=== PATIENT | female | born 1990 | race African-American/Black ===

== ENCOUNTER → 2017-05-04 | Outpatient (CLI) | payer OTHER | LOC: COL.PUL 04-23 11:00 | DX: J45.909 Unspecified asthma, uncomplicated (principal) | CPT/HCPCS: J7674 ==

== ENCOUNTER → 2017-10-20 | Outpatient (CLI) | payer OTHER | LOC: COL.RAD 12:46 | DX: Z31.41 Encounter for fertility testing (principal) | CPT/HCPCS: Q9967 ==